=== PATIENT | female | born 1940 | race Caucasian/White ===

== ENCOUNTER 2016-10-01 12:25 | Outpatient (CLI) | payer MEDICARE, OTHER ==
[~2016-10-01] VITALS: Ht 162.6 cm; Wt 56.8 kg
--- NOTE | ~2016-10-01 | HEMODYNAMI ---
PATIENT:ADRIANO MORRISON MEDICAL RECORD: [id number] : 40 [facility]# [id number] ADMISSION DATE: 10/01/16 Generatedon:10/02/20169:46 Patient name: ADRIANO MORRISON Patient #: [id number] SSN: : 1940 Date of study: 10/02/2016 Page: Of Hemodynamic Procedure Report Patient Data Patient Demographics Procedure consent was obtained First Name: ADRIANO Gender: Female Last Name: PRINCE : 1940 Middle Initial: D Age: 76 year(s) Patient #: [id number] Race: Additional ID: [id number] Contact details Address: [address] [place] [address] State: [place] City: [place] Zip code: [address] Past Medical History Allergies: No known allergies Admission Admission Data Admission Date: 10/01/2016 Admission Time: 13:38 Room #: D.2119 Insurance Payor: [employer], Medicare Height (in.): 64 BSA: 1.68 (m2) Height (cm.): 162.56 BMI: 24.03 (kg/m2) Weight (lbs.): 140 Weight (kg.): 63.5 Medications upon Admission Medications Dosage Times Administered Last Remarks per Delivery Day Date and Time Clopidogrel Yes 10/02/2016 0:00 Lab Results Lab Result Date: 10/02/2016 Lab Result Time: 0:00 Biochemistry Name Units Result Min Max Creatinine mg/dl 1.2 --(---*)-- 0.6 1.3 CBC Name Units Result Min Max Hemoglobin g/dl 12.7 -*(----)-- 13.5 17.5 Procedure Procedure Types Cath Procedure Diagnostic Procedure [facility] w/Coronaries FFR/IVUS Intra-Coronary IVUS Initial PCI Procedure Coronary Stent Initial Procedure Description Procedure Date Procedure Date: 10/02/2016 Procedure Start Time: 9:19 Procedure End Time: 9:42 Procedure Staff Name Function Scott Martinez MD Performing Physician [employer] RT Scrub Padmini Herrera RN Nurse Foreign Vieyra RN Communication And Outreach Manager Luis F Kelley RT Monitor Procedure Data Cath Procedure Fluoroscopy Diagnostic fluoroscopy Total fluoroscopy Time: 2.3 time: 2.3 min min Diagnostic fluoroscopy Total fluoroscopy dose: 372 dose: 372 mGy mGy Contrast Material Contrast Material Type Amount (ml) Isovue 300 85 Entry Location Entry Primary Successful Side Size Upsize Upsize Entry Closure Succes sful Closure Location (Fr) 1 (Fr) 2 (Fr) Remarks Device Remarks Femoral Right 5 Fr 6 Fr Vascade artery Short Closure System Estimated blood loss: 10 ml Diagnostic catheters Device Type Used For End Catheter Placement Cordis 5Fr Pigtail Procedure Catheter (MP) Cordis 5Fr JL 4.0 Procedure Catheter (MP) Cordis 5Fr 3DRC Catheter Procedure (MP) Procedure Medications Medication Administration Route Dosage Oxygen NC 2 l/min Lidocaine 2% added to field 20 Heparin Flush Bag added to field 2 bags (1000units/500ml NS) 0.9% NaCl I.V. 100 ml/hr Versed I.V. 1 mg Fentanyl I.V. 50 mcg Versed I.V. 0.5 mg Fentanyl I.V. 25 mcg Heparin Bolus I.V. 4000 units Hemodynamics Rest BSA: 1.68 (m2) HGB: 12.7 (g/dl) O2 Consumption: Estimated: 152.71 (ml/min) O2 Co nsumption indexed: Estimated:90.9 (ml/min/m) Heart Rate: 70 (bpm) Snapshots Pre Cath Intra NCS Post Cath Vital Signs Time Heart Resp SPO2 etCO2 [id number] NIBP (mmHg) Rhythm Pain Sedation Rate (ipm) (%) (mmHg) (mmHg) Status Level (bpm) 9:11:11 70 20 99 0 0 128/70(100) NSR 0 (11) 10(A) , No pain 9:15:28 73 16 97 0 0 112/63(92) NSR 0 (11) 10(A) , No pain 9:19:37 74 17 99 0 0 115/68(84) NSR 0 (11) 9(A) , No pain 9:23:47 79 16 99 0 0 113/66(90) NSR 0 (11) 9(A) , No pain 9:27:57 80 17 99 0 0 112/65(81) NSR 0 (11) 9(A) , No pain 9:32:09 79 17 99 0 0 113/61(77) NSR 0 (11) 9(A) , No pain 9:36:19 81 16 99 0 0 110/66(81) NSR 0 (11) 10(A) , No pain 9:40:25 84 22 99 0 0 123/72(97) NSR 0 (11) 10(A) , No pain Medications Time Medication Route Dose Verified Delivered Reason Notes Effectiveness by by 9:11:22 Oxygen NC 2 Scott Buffie used for l/min Juan Herrera RN procedure 9:11:28 Lidocaine 2% added 20ml Scott Scott for local to vial Juan Martinez MD anesthetic field 9:11:33 Heparin Flush added 2 Scott Scott used for Bag to bags Juan Martinez MD procedure (1000units/500ml field NS) 9:11:42 0.9% NaCl I.V. 100 Scott Buffie Per physician ml/hr Juan Herrera RN 9:17:15 Versed I.V. 1 mg Scott Buffie for sedation Juan Herrera RN 9:17:21 Fentanyl I.V. 50 Scott Buffie for sedation mcg Juan Herrera RN 9:25:53 Versed I.V. 0.5 Scott Buffie for sedation mg Juan Herrera RN 9:25:57 Fentanyl I.V. 25 Scott Buffie for sedation mcg Juan Herrera RN 9:31:15 Heparin Bolus I.V. 4000 Scottlena Deeie for verifie d units Juan Herrera RN anticoagulation with dr martinez Procedure Log Time Note 8:35:05 Foreign Vieyra RN sent for patient. Start room use. 8:47:11 Time tracking: Regular hours 8:47:15 Plan of Care:Hemodynamics will remain stable., Cardiac rhythm will remain stable., Comfort level will be maintained., Respiratory function will remain adequate., Patient/ family verbilizes understanding of procedure., Procedure tolerated without complication., Recovers from procedure without complications.. 8:53:16 Patient received from PCU to [facility] 2 Alert and oriented. Tansferred to table in Supine position. 8:53:17 Warm blankets applied, and fred hugger turned on for patient comfort. 8:53:17 Correct patient and procedure confirmed by team. 8:53:19 Signed procedure consent form obtained from patient. 9:09:58 ECG and BP/O2 sat monitors applied to patient. 9:09:59 Vital chart was started 9:10:00 Baseline sample Acquired. 9:10:15 Rhythm: sinus rhythm 9:10:17 Full Disclosure recording started 9:10:34 H&P Date Dictated: 10/01/2016 Within 30 days and on chart.. 9:10:36 Pre-procedure instructions explained to patient. 9:10:36 Pre-op teaching completed and patient verbalized understanding. 9:10:38 Family in patients room. 9:10:40 Patient NPO since Midnight. 9:11:22 Oxygen 2 l/min NC was given by Padmini Herrera RN; used for procedure; 9:11:28 Lidocaine 2% 20ml vial added to field was given by Scott Martinez MD; for local anesthetic; 9:11:33 Heparin Flush Bag (1000units/500ml NS) 2 bags added to field was given by Scott Martinez MD; used for procedure; 9:11:42 0.9% NaCl 100 ml/hr I.V. was given by Padmini Herrera RN; Per physician; 9:12:51 Patient allergic to No known allergies 9:12:53 Is the patient allergic to Iodine/contrast media? No. 9:13:02 Is patient on blood thinner?Yes 9:13:06 ACC The patient was administered the following blood thiners within the last 24 hours: ACCAspirin, ACCPlavix 9:13:11 Patient diabetic? No. 9:13:20 Previous problem with sedation/anesthesia? No ? 9:13:22 Snore? Yes 9:13:23 Sleep apnea? No 9:13:25 Deviated septum? No 9:13:25 Opens mouth fully? Yes 9:13:26 Sticks out tongue? Yes 9:13:28 Airway obstruction? No ? 9:13:30 Dentures? No ? 9:13:34 Pre procedure: right dorsailis pedis pulse 1+ Palpable, but thready & weak; easily obliterated 9:13:36 Patient pain scale 0/10 ?. 9:13:45 Patient pain scale 3/10 ?. 9:13:57 IV patent on arrival in left wrist with 0.9% NaCl at [facility]. 9:14: Lab Result : Creatinine 1.2 mg/dl 9:14: Lab Result : Hemoglobin 12.7 g/dl 9:14:25 Lab results completed and on chart. 9:14:29 Right groin area was prepped with chlora-prep and draped in sterile fashion 9:14:30 Alarms reviewed by R. N. 9:14:30 Sharps counted by scrub and verified by R.N. 9:14:38 Use device set Femoral Dx 9:14:51 Tegaderm 4 x 4 opened to sterile field. 9:14:52 Acist Manifold opened to sterile field. 9:14:53 Acist Hand Control opened to sterile field. 9:14:54 Acist Syringe opened to sterile field. 9:14:54 Bag Decanter opened to sterile field. 9:14:55 Cardinal Cath Pack opened to sterile field. 9:14:56 Terumo 5Fr Krypton Sheath opened to sterile field. 9:14:57 St Damian 260cm J .035 wire opened to sterile field. 9:15:01 Cordis Infinity 5Fr Multipack catheter opened to sterile field. 9:15:13 --------ALL STOP TIME OUT------ 9:15:13 Final Timeout: patient, procedure, and site verified with staff and physician. All members of the team are in agreement. 9:15:15 Right groin site verified by team. 9:15:19 Physical assessment completed. ASA score P 2 - A patient with mild systemic disease as per Scott Martinez MD. 9:15:22 Sedation plan: IV Moderate Sedation Versed, Fentanyl 9:17:15 Versed 1 mg I.V. was given by Padmini Herrera RN; for sedation; 9:17:21 Fentanyl 50 mcg I.V. was given by Padmini Herrera RN; for sedation; 9:19:26 Zero performed for pressure channel P1 9:19:39 Procedure started. 9:19:43 Local anesthetic to right femoral artery with Lidocaine 2% by Scott Martinez MD.INITIAL ACCESS ONLY 9:20:19 A 5 Fr sheath was inserted into the Right Femoral artery 9:20:27 A Cordis 5Fr Pigtail Catheter (MP) was advanced over the wire and used for Procedure. 9:20:34 LV gram done using RUSSO 9:20:39 Injector settings: Ml/sec: 10, Volume: 20, 9:20:54 EF : 60 % 9:20:59 Catheter exchanged over wire. 9:21:03 A Cordis 5Fr JL 4.0 Catheter (MP) was advanced over the wire and used for Procedure. 9:21:29 LCA angiography performed. 9:22:34 Catheter exchanged over wire. 9:22:37 A Cordis 5Fr 3DRC Catheter (MP) was advanced over the wire and used for Procedure. 9:22:54 RCA angiography performed. 9:23:26 Catheter removed. 9:23:43 Terumo 6Fr Krypton Sheath opened to sterile field. 9:23:44 Weldon Whisper J 300cm 0.014 guide wire opened to sterile field. 9:23:45 Motion Math [place] IVUS Catheter opened to sterile field. 9:23:58 Sheath upsized to a 6 Fr Short. 9:25:31 Medtronic Launcher 6Fr 3DRC guide catheter opened to sterile field. 9:25:39 6 Fr 3drc guide catheter was inserted over the wire 9:25:42 whisper wire advanced. 9:25:43 Wire advanced across lesion. 9:25:45 IVUS catheter advanced over wire. 9:25:49 IVUS pass to RCA lesion performed. 9:25:53 Versed 0.5 mg I.V. was given by Padmini Herrera RN; for sedation; 9:25:57 Fentanyl 25 mcg I.V. was given by Padmini Herrera RN; for sedation; 9:27:18 IVUS catheter removed over wire. 9:31:15 Heparin Bolus 4000 units I.V. was given by Padmini Herrera RN; for anticoagulation; verified with dr martinez 9:32:33 MEASURING 9:33:22 Inflation Number: 1 A Medtronic Integrity 4.0 X 12 stent was prepped and advanced across the Mid RCA. The stent was deployed at 17 NABEEL for 0:10 (min:sec). 9:33:42 Vascade 6/7 Fr Closure Device opened to sterile field. 9:34:12 ACC PCI Site: mRCA has 65% stenosis. 9:34:24 ACC Post-intervention SUZI Flow is 3. 9:34:26 Stent catheter was removed intact over wire. 9:34:32 Wire removed. 9:34:34 Guide catheter removed. 9:37:12 Sheath removed intact; hemostasis achieved with Vascade Closure System to the Right Femoral artery. 9:37:15 Procedure ended.(Physican Out) 9:37:30 Fluoroscopy time 02.30 minutes. 9:37:36 Fluoroscopy dose: 372 mGy 9:37:36 Flurop Dose total: 372 9:37:47 Contrast amount:Isovue 300 85ml. 9:37:49 Sharps counted by scrub and verified by R.N. 9:40:29 Insertion/operative site no bleeding no hematoma. 9:40:37 Post-op/insertion site Right Femoral artery dressed using a 4 x 4 and Tegaderm. 9:40:43 Post right femoral artery:stable 9:40:51 Post Procedure Pulses reassessed and unchanged 9:41:04 Post-procedure physical assessment completed. ASA score P 2 - A patient with mild systemic disease as per Scott Martinez MD. 9:41:09 Post procedure rhythm: sinus rhythm 9:41:13 Estimated blood loss: 10 ml 9:41:15 Post procedure instruction explained to patient.Patient verbalizes understanding. 9:41:16 Patient needs reinforcement of post procedure teaching. 9:41:42 Procedure type changed to Cath procedure, Diagnostic procedure, LHC, LHC w/Coronaries, FFR/IVUS, Intra-Coronary IVUS Initial, PCI procedure, Coronary Stent Initial 9:42:12 Procedure and supply charges have been captured, reviewed, submitted and are correct. 9:42:19 Vital chart was stopped 9:42:21 See physician's report for complete and final results. 9:42:23 Report given to Post Procedure Room. 9:42:28 Patient transfered to Post Procedure Room with Stretcher. 9:42:32 Procedure ended. 9:42:32 Full Disclosure recording stopped 9:42:50 ACC-PCI Only Patient was given prescriptions, or instructed by Padmini Herrera RN to start/continue the following medications upon discharge: Aspirin, Plavix 9:42:52 End room use (Document Last) 9:44:38 Patient Height : 64 cm 9:44:55 Patient Weight : 140 kg 9:44:57 Insurance Payor : Medicare, [facility] 9:45:34 ACC Patient presents with Unstable Angina CCS Anginal Class 2--Slight limitation of ordinary activity. 9:45:45 Diagnostic Cath Status : Elective Intervention Summary Intervention Notes Time ActionType Lesion and Equipment Action# Pressure Duration Attributes Used 9:33:22 Place stent Mid RCA Medtronic 1 17 00:10 Integrity 4.0 X 12 stent Device Usage Item Name Manufacture Quantity Catalog Hospital Part Current Minimal Lot# / Number Charge Number Stock Stock Serial# Code [address] 1 [id number] 137364 467587 5 4 x 4 Acist Acist 1 34185 704812 645576 310248 5 PipelineDB Acist Acist 1 82158 544666 787155 636499 5 Hand Satin [employer] Inc Acist Acist 1 00344 676774 980902 515455 20 Syringe Satin [employer] ([employer]) Systems Ubalo Bag Microtek 1 2002S 480782 46629 450282 5 [place]an [place] [employer]. Cardinal Cardinal 1 [id number] 896987 19664 032593 5 Cath Pack Health Terumo Terumo 1 [id number] 073652 551483 512416 [address] Damian 1 653409 037386 999409 944931 30 260cm J .035 wire Cordis Cardinal 1 [id number] 393494 53710 900254 30 Infinity Health 5Fr Multipack catheter Cordis Cardinal 1 255251 5 5Fr Health Pigtail Catheter (MP) Cordis Cardinal 1 562373 5 5Fr JL Health 4.0 Catheter (MP) Cordis Cardinal 1 404860 5 5Fr 3DRC Health Catheter (MP) Terumo Terumo 1 [id number] 095425 191408 770446 40 6Fr Krypton Sheath Weldon Weldon 1 [id number] 188204 899835 662299 5 Whisper J Vascular 300cm 0.014 guide wire [place] 1 [id number] 336424 753537 548690 8 [place] IVUS Catheter Medtronic Medtronic 1 [id number] 346613 532322 799401 1 Launcher 6Fr 3DRC guide catheter Medtronic Medtronic 1 [id number] 149582 958630 195459 5 [id number] Integrity 4.0 X 12 stent Vascade Cardiva 1 [id number] 319587 775278 393364 5 02/24 Medical, Closure Inc. Device Signature Audit [place] Time Signature Unsigned Intra-Procedure 10/02/2016 Luis F Kelley 9:46:06 AM RT(R) Signatures Monitor : Luis F Kelley RT Signature : Date : Time : [id number] [place] [address]
[2016-10-01 10:50] LABS: BASOPHILS 0.1 % (0.0-2.0); EOSINOPHILS 0.6 % (0-7); HEMATOCRIT 36.8 % (36.0-48.0); HEMOGLOBIN 12.7 g/dL (12-16); IMMATURE GRANULOCYTES 0.1 % (0-5); LYMPHOCYTES 37.5 % (15-50); MCH 29.7 pg (26.0-34.0); MCHC 34.5 g/dL (31.0-37.0); MCV 86.2 fL (80.0-100.0); MEAN PLATELET VOLUME 8.7 fL (7.4-10.4); MONOCYTES 7.5 % (2-11); NEUTROPHILS 54.2 % (40-80); PLATELET COUNT 317 10x3/uL (130-400); RBC 4.27 10x6/uL (4.00-5.40); RDW 12.3 % (11.5-14.5); WBC 6.8 10x3/uL (4.8-10.8)
[2016-10-01 11:08] LABS: ALBUMIN 4.1 g/dL (3.4-5.0); ALKALINE PHOSPHATASE 99 U/L (46-116); ALT (SGPT) 25 U/L (10-68); BILIRUBIN - TOTAL 1.07 mg/dL (0.2-1.3); CALC OSMOLALITY 256 mosm/kg (275-300); CALCIUM 9.4 mg/dL (8.5-10.1); CARBON DIOXIDE 28.7 mmol/L (21.0-32.0); CHLORIDE - SERUM 90 mmol/L (98-107); CREATININE - SERUM 1.2 mg/dL (0.6-1.3); GLUCOSE 104 mg/dL (74-106); POTASSIUM - SERUM 4.2 mmol/L (3.5-5.1); PROTEIN - SERUM 7.1 g/dL (6.4-8.2); SODIUM 128 mmol/L (136-145); UREA NITROGEN 13 mg/dL (7-18); eGFR NON AFRICAN AMERICAN 46 mL/min (90-120)
[2016-10-01 11:19] LABS: CHOL - HDL RATIO 3.4 ratio (2.3-4.1); CHOLESTEROL, TOTAL 175 mg/dL (0-200); CKMB 3.9 U/L (0.0-3.6); CREATINE KINASE 235 UL (21-215); HDL CHOLESTEROL 51 mg/dL (32-96); LDL CHOLESTEROL 103 mg/dL (0-100); TRIGLYCERIDE 109 mg/dL (30-200)
[2016-10-01 11:21] LABS: TROPONIN-I < 0.017 ng/mL (0.000-0.060)
--- NOTE | 2016-10-01 15:31 | NUR ---
TRANSFER FROM ER BY STRETCHER. OREINTED TO ROOM. CALL LIGHT IN REACH. WILL CONT. PLAN OF CARE.
[2016-10-01] MEDS ORDERED: CARAFATE1 G PO (15:35)
[2016-10-01] MEDS ORDERED: SYNTHROID75 MCG PO (15:36)
[2016-10-01] MEDS ORDERED: CYMBALTA30 MG PO (15:36)
[2016-10-01] MEDS ORDERED: OMEPRAZOLE40 MG PO (15:36)
[2016-10-01] MEDS ORDERED: EDARBYCLOR 40-1 EACH PO (15:38)
[2016-10-01 16:00] VITALS: Ht 162.6 cm; Wt 56.8 kg
[2016-10-01 16:28] VITALS: BP 138/75
--- NOTE | 2016-10-01 17:53 | NUR ---
WITHOUT CHANGES OR DISTRESS NOTED AT THIS TIME. SON AT SIDE.
--- NOTE | 2016-10-01 19:42 | NUR ---
RESUMED CARE OF PT, LYING IN BED RESPIRAITONS EVEN AND UNLABORED ON 2LPM VIA NC. LEFT HAND SALINE LOCKED. 79 SR ON TELEMETRY. PLAN OF CARE DISCUSSED. CALL LIGHT IN REACH. SEE NURSE ASSESSMENT. WILL CONTINUE TO MONITOR.
[2016-10-01 20:50] VITALS: BP 114/63
[2016-10-02 02:50] VITALS: BP 101/70
--- NOTE | 2016-10-02 05:01 | NUR ---
CALL LIGHT IN REACH, WILL CONTINUE WITH PLAN OF CARE.
[2016-10-02 05:22] VITALS: BP 108/70
[2016-10-02 08:00] VITALS: BP 114/67
--- NOTE | 2016-10-02 08:55 | NUR ---
IV RESTARTED TO LEFT FA WITH 22 GAUGE CATH X 1 STICK. PRE-OPS GIVEN. TO DEWAXER BY BED.
--- NOTE | 2016-10-02 10:01 | NUR ---
BACK FOM PHLEBOTOMY DIRECTOR. VS WNL. RIGHT GROIN STABLE WITHOUT BLEEDING OR HEMATOMA NOTED. WILL MONITOR.
[2016-10-02] MEDS ORDERED: ASPIRIN81 MG PO (10:52)
[2016-10-02] MEDS ORDERED: PLAVIX75 MG PO (10:52)
--- NOTE | 2016-10-02 11:11 | HP ---
PATIENT: ADRIANO LOZANO MEDICAL RECORD: [id number] ACCOUNT: [id number] LOCATION:[address] : 40 ADMISSION DATE: 10/01/16 HISTORY AND PHYSICAL EXAMINATION ADMITTING DIAGNOSIS: Chest pain compatible with angina -- unstable. HISTORY OF PRESENT ILLNESS: Mrs. Lozano has no previous cardiac history, no previous chest pain history for the past 2 days. She has been having a classic chest pain compatible with angina, dull aching sensation across the anterior chest. Her CPK and MB were elevated; however, troponin is normal. She continues to have the chest pain. Her EKG is with nonspecific ST-T abnormalities, but no acute ST elevation. PHYSICAL EXAMINATION: GENERAL APPEARANCE: Well-nourished, well-developed, appears stated age. Level of distress, comfortable. PSYCHIATRIC: Mental status, alert, normal affect. Orientation, oriented to time, place and person. EYES: Lids and conjunctiva, noninjected. No discharge, no pallor. ENT: Lips, teeth, gums, normal dentition. Oropharynx, no cyanosis, no pallor. NECK: Carotid arteries, bilateral normal upstroke, no bruits, no thrills. JUGULAR VEINS: No jugular venous pressure or distention. CERVICAL LYMPH NODES: Nontender, nonenlarged. THYROID: Not enlarged. Nontender. No nodules. LUNGS: Respiratory effort, unlabored. CHEST: Normal curvature. No thoracic deformity. No chest wall tenderness. Percussion, resonant. Auscultation, clear. No wheezes, no rales, no rhonchi. CARDIOVASCULAR: Precordial exam, nondisplaced. No heaves or pericardial thrills. Rate and rhythm, regular. Heart sounds, normal S1, normal S2. No S3, no gallop, no rub. Systolic murmur, not heard. Diastolic murmur, not heard. EXTREMITIES: No cyanosis, no edema. Peripheral pulses, full and equal in all extremities, except as noted. No bruits appreciated. ABDOMEN: Soft, nondistended. Normal aorta. No bruit. Nontender. No masses. Liver, nontender, no hepatomegaly. Spleen, nontender, no splenomegaly. MUSCULOSKELETAL: No joint tenderness. No joint swelling. No erythema. NEUROLOGICAL: Normal gait, normal strength, normal tone. SKIN: Warm and dry. REVIEW OF SYSTEMS: The patient reports easy bruising but reports no swollen glands. The patient reports no fever, no night sweats, no significant weight gain, no significant weight loss. No significant exercise tolerance. The patient reports no dry eyes, no irritation, no vision change. Patient reports no difficulty hearing and no ear pain. Patient reports no frequent nose bleeds or nose and sinus problems. Patient reports on arm pain on exertion. No shortness of breath while lying down. No history of heart murmur. Patient reports no cough, no wheezing or coughing up blood. Patient reports no abdominal pain, no vomiting. Normal appetite. No diarrhea and not vomiting blood. No nausea and no constipation. Patient reports no incontinence. No difficulty urinating. No hematuria. No increased frequency. Patient reports no muscle aches. No weakness, no arthralgias, no back pain. No swelling of the extremities. Patient reports no abnormal mole, no jaundice, no rashes. Reports no loss of consciousness. No weakness and no numbness. No seizures, dizziness, or headaches. The patient reports no depression, no sleep disturbance, feeling safe in a relationship and no alcohol abuse. Patient reports on fatigue. HISTORY AND PHYSICAL [id number] ADRIANO LOZANO Reports no runny nose or sinus pressure. No itching, no hives, and no frequent sneezing. OVERALL IMPRESSION: Chest pain compatible with angina with abnormal CK and CK-MB, most likely she does have hemodynamically significant coronary artery disease. We will load her with Plavix today. Proceed with coronary angiography in the a.m. Further care depends upon findings of the angiography. TRANSINT:[id number] Voice Confirmation ID: [id number] DOCUMENT ID: [id number] DEAN MOFFETT MD at 1111 CC: [id number] DICTATION DATE: 10/01/16 1226 ADMINISTRATION CLERK: 10/01/16 1238 ADM IN [id number] [place] [address]
--- NOTE | 2016-10-02 11:11 | DS ---
PATIENT:ADRIANO LOZANO :40 MEDICAL RECORD: [id number] DISCHARGE SUMMARY ADMISSION DATE: 10/01/16 DISCHARGE DATE: DISCHARGE DIAGNOSES: 1. Angina. 2. Coronary artery disease. 3. Percutaneous transluminal coronary angioplasty stent right coronary artery this admission. HOSPITAL COURSE: Mrs. Lozano presents with anginal symptomatology, found to have single-vessel disease to the RCA, underwent successful PTCA stent of the RCA, was discharged home with the addition of aspirin and Plavix to her medical regimen. We will follow up with [facility] in 1 month. TRANSINT:[id number] Voice Confirmation ID: [id number] DOCUMENT ID: [id number] DEAN MOFFETT MD at 1111 CC: [id number] DICTATION DATE: 10/02/16936 BITE BLOCK MAKER: 10/02/16 0951 ADM IN [facility] [address] [id number]
--- NOTE | 2016-10-02 11:11 | OP ---
PATIENT NAME: ADRIANO MORRISON MEDICAL RECORD: [id number] :40 LOCATION:D.M2 D.2119 ADMISSION DATE:10/01/16 SURGEON: DEAN MOFFETT MD DATE OF OPERATION: 10/02/2016 PROCEDURES: 1. PTCA stent RCA. 2. Intravascular ultrasound RCA. 3. Left heart catheterization. 4. Selective coronary angiography. 5. Left ventriculogram. INDICATION: Angina and coronary artery disease. PROCEDURE IN DETAIL: After informed consent was obtained and after detailed explanation of risks, benefits as well as alternative therapies, the patient elected to proceed with angiogram and angioplasty. The right femoral area was prepped and draped in normal sterile fashion. Right femoral artery was cannulated via modified Seldinger technique with the placement of 6-Cambodian sheath. All catheters exchanged through this sheath. FINDINGS: The left ventriculogram was performed in standard 30-degree RUSSO view, reveals good cardiac wall motion throughout all segments. Overall ejection fraction estimated at 55%-60%. SELECTIVE CORONARY ANGIOGRAPHY: 1. Left main showed no significant angiographic disease. 2. Left anterior descending, has moderate irregularities, but no flow-limiting stenosis, left circumflex shows moderate irregularities, but no flow-limiting stenosis. 3. The right coronary has a 65% to 70% stenosis in the mid vessel confirmed by intravascular ultrasound. PTCA STENT OF THE RCA: The stent used is a 4.0 x 12 mm Integrity. Result was 0% residual stenosis. OVERALL IMPRESSION: Successful percutaneous transluminal coronary angioplasty stent of the right coronary artery going from 65-70% initial stenosis to 0% residual. TRANSINT:[id number] Voice Confirmation ID: [id number] DOCUMENT ID: [id number] DEAN MOFFETT MD at 1111 CC: [id number] DICTATION DATE: 10/02/16 0938 TRAINING PROGRAM DEVELOPER: 10/02/16 0955 ADM IN [id number] [place] [address]
[2016-10-02 12:00] VITALS: BP 96/51
--- NOTE | 2016-10-02 13:25 | NUR ---
SOME BRUISING NOTED TO RIGHT GROIN. GREG FROM MACHINIST HELPER NOTIFIED TO COME OVER TO ASSESS.
--- NOTE | 2016-10-02 13:42 | NUR ---
FEMSTOP APPLIED BY GREG. WILL MONITOR.
--- NOTE | 2016-10-02 14:22 | NUR ---
GREG AT [facility]. WILL LEAVE ON 15 MIN AND REASSES.
--- NOTE | 2016-10-02 14:40 | NUR ---
FEMSTOP OFF WITHOUT FURTHER BLEEDING OR HEMATOMA. WILL CONT. TO MONITOR.
--- NOTE | 2016-10-02 15:23 | NUR ---
RIGHT GROIN STABLE WITHOUT BLEEDING OR HEMATOMA NOTED. IV AND TELEMETRY DCD. DC PLANS GIVEN. UNDERSTANDING VOICED. ESCORTED TO CAR BY W/C.
== END 2016-10-02 15:24 | disposition home or self-care (01) ==
LOC: OBSVTIME → D.CATH 12:25 → D.M2 12:25 → EDSTATUS 13:00 → D.M2 13:38 → OBSVTIME 13:38 → D.ER 13:38 → D.M2 10-02 13:06 → D.SDCHOLD 10-02 13:06 → D.M2 10-02 15:24 → D.CATH 10-02 15:24 → D.M2 10-02 15:24
PROVIDERS: Emergency Medicine
DX: I25.119 Atherosclerotic heart disease of native coronary artery with unspecified angina pectoris (principal)

== ENCOUNTER 2018-07-18 21:00 | Emergency (ER) | payer MEDICARE, OTHER ==
[~2018-07-18] VITALS: Ht 162.6 cm; Wt 68.2 kg
[~2018-07-18 21:00] MED LIST: ASPIRIN81 MG PO; CARAFATE1 G PO; CYMBALTA30 MG PO; EDARBYCLOR 40-1 EACH PO; OMEPRAZOLE40 MG PO; PLAVIX75 MG PO; SYNTHROID75 MCG PO
[2018-07-18 21:01] VITALS: Ht 162.6 cm; Wt 68.2 kg
[2018-07-18] MEDS ORDERED: TORADOL10 MG PO (23:43)
[2018-07-19 00:04] VITALS: BP 190/95
== END 2018-07-19 00:04 | disposition home or self-care (01) ==
LOC: D.ER 21:00
DX: S02.2XXA Fracture of nasal bones, initial encounter for closed fracture (principal); W18.30XA Fall on same level, unspecified, initial encounter; Y93.89 Activity, other specified; Y92.019 Unspecified place in single-family (private) house as the place of occurrence of the external cause; S01.81XA Laceration without foreign body of other part of head, initial encounter

== ENCOUNTER 2019-08-28 11:07 | Inpatient (IN) | payer MEDICARE ==
[~2019-08-28] VITALS: Ht 162.6 cm; Wt 68.2 kg
[~2019-08-28 11:07] MED LIST changes: +TORADOL10 MG PO
[2019-08-28 11:26] LABS: BASOPHILS 0.3 % (0-2); EOSINOPHILS 1.4 % (0-7); HEMATOCRIT 40.4 % (36.0-48.0); HEMOGLOBIN 13.4 g/dL (12-16); IMMATURE GRANULOCYTES 0.2 % (0-5); LYMPHOCYTES 45.7 % (15-50); MCH 29.3 pg (26.0-34.0); MCHC 33.2 g/dL (31.0-37.0); MCV 88.4 fL (80.0-100.0); MEAN PLATELET VOLUME 9.9 fL (7.4-10.4); MONOCYTES 6.9 % (2-11); NEUTROPHILS 45.5 % (40-80); RBC 4.57 10x6/uL (4.00-5.40); RDW 14.2 % (11.5-14.5); WBC 6.3 10x3/uL (4.8-10.8)
[2019-08-28 11:30] LABS: PLATELET COUNT 234 10x3/uL (130-400)
[2019-08-28 11:41] LABS: ANION GAP 13.9 mmol/L (8-16); CALCIUM 9.1 mg/dL (8.5-10.1); CARBON DIOXIDE 25.9 mmol/L (21.0-32.0); CREATININE - SERUM 1.5 mg/dL (0.6-1.3); POTASSIUM - SERUM 3.8 mmol/L (3.5-5.1)
[2019-08-28 11:47] LABS: ALBUMIN 3.4 g/dL (3.4-5.0); BILIRUBIN - TOTAL 0.67 mg/dL (0.2-1.3); PROTEIN - SERUM 6.9 g/dL (6.4-8.2)
[2019-08-28 12:42] LABS: APPEARANCE CLEAR (CLEAR); BILIRUBIN NEGATIVE (NEGATIVE); COLOR YELLOW (YELLOW); GLUCOSE NEGATIVE (NEGATIVE); KETONE NEGATIVE (NEGATIVE); NITRITE NEGATIVE (NEGATIVE); PROTEIN NEGATIVE (NEGATIVE); SPECIFIC GRAVITY 1.015 (1.005-1.020); UROBILINOGEN NORMAL (NORMAL)
[2019-08-28 13:44] VITALS: BP 145/76
--- NOTE | 2019-08-28 14:50 | NUR ---
RECIEVED REPORT FROM [place] BARKSDALE RN.
[2019-08-28] MEDS ORDERED: TRAZODONE HCL150 MG PO (15:19)
[2019-08-28] MEDS ORDERED: COZAAR100 MG PO (15:19)
[2019-08-28] MEDS ORDERED: RABEPRAZOLE SOD PO (15:20)
[2019-08-28] MEDS ORDERED: XANAX1 MG PO (15:21)
[2019-08-28 15:31] VITALS: BP 168/73; Ht 162.6 cm; Wt 68.2 kg
--- NOTE | 2019-08-28 15:33 | NUR ---
PT ARRIVED IN ROOM VIA STRETCHER, STOOD WITH SON TO TRANSFER. APPEARS TO BE MAX ASSIST WHEN STANDING. FAMILY REQUESTS PT WHILE SHE'S HERE IF POSSIBLE. ALSO REQUESTS HER TO BE OFF NPO BECASUE THEY DON'T WANT HER TO BE HUNGRY. PT IS ALERT AND ORIENTED X3, UNAWARE OF SPECIFIC TIMES. HX OF DEMENTIA, SON STATES IT'S BEEN PROGRESSING RAPIDLY OVER THE PASS FEW WEEKS COMPARED TO WHEN SHE WAS FIRST DIAGNOSISED.
--- NOTE | 2019-08-29 00:16 | NUR ---
RESTING WITH EYES CLOSED, RESPERATIONS EVEN, NO S/S DISTRESS NOTED.
[2019-08-29 00:30] VITALS: BP 115/64
--- NOTE | 2019-08-29 02:10 | NUR ---
I have reviewed this patient and I concur with the Shift Assessment completed by the Licensed Practical Nurse today this shift.
[2019-08-29 04:43] VITALS: BP 130/69
[2019-08-29 06:29] LABS: BASOPHILS 0.2 % (0-2); EOSINOPHILS 1.7 % (0-7); HEMATOCRIT 35.1 % (36.0-48.0); HEMOGLOBIN 11.4 g/dL (12-16); IMMATURE GRANULOCYTES 0.2 % (0-5); LYMPHOCYTES 52.2 % (15-50); MCH 28.6 pg (26.0-34.0); MCHC 32.5 g/dL (31.0-37.0); MEAN PLATELET VOLUME 10.1 fL (7.4-10.4); MONOCYTES 6.7 % (2-11); PLATELET COUNT 236 10x3/uL (130-400); RBC 3.99 10x6/uL (4.00-5.40)
[2019-08-29 06:54] LABS: ALBUMIN 2.7 g/dL (3.4-5.0); ANION GAP 9.9 mmol/L (8-16); BILIRUBIN - TOTAL 0.5 mg/dL (0.2-1.3); CALCIUM 8.5 mg/dL (8.5-10.1); CARBON DIOXIDE 26.9 mmol/L (21.0-32.0); CREATININE - SERUM 1.3 mg/dL (0.6-1.3); POTASSIUM - SERUM 3.8 mmol/L (3.5-5.1); PROTEIN - SERUM 5.9 g/dL (6.4-8.2)
[2019-08-29 08:00] VITALS: BP 124/76
--- NOTE | 2019-08-29 09:58 | NUR ---
PATIENT IS RESTING QUIETLY IN BED. DENIES ANY NEEDS AT THIS TIME.
[2019-08-29 12:00] VITALS: BP 105/85
--- NOTE | 2019-08-29 14:54 | NUR ---
OT NOTE: PT COMPLETED BED MOB TASKS WITH MOD A. PT COMPLETED TRANSFER WITH MIN A. PT COMPLETED HYGIENE TASKS WITH MOD A. THANK YOU,RICHARDSON BOUDREAUX
[2019-08-29] MEDS ORDERED: FLORAJEN3 CAPS460 MG PO (15:01)
[2019-08-29] MEDS ORDERED: OMNICEF300 MG PO (15:02)
[2019-08-29] MEDS ORDERED: MUCINEX600 MG PO (15:02)
[2019-08-29] MEDS ORDERED: ZITHROMAX500 MG PO (15:03)
[2019-08-29] MEDS ORDERED: TESSALON PERLE100 MG PO (15:06)
--- NOTE | 2019-08-29 16:18 | MORECARE ---
CASE MANAGEMENT DISCHARGE SUMMARY PATIENT: ADRIANO MORRISON UNIT: [id number] ADM DATE: 08/28/19 AGE: 79 : 40 SEX: F ROOM/BED: D.5916 AUTHOR: ROCKY MYLES PHYSICIAN: REFERRING PHYSICIAN: FLORIN PARDO MD DATE OF SERVICE: 08/29/19 Discharge Plan Patient Name: ADRIANO MORRISON Facility: [facility]:[place] : 1940 Planned Disposition: Home with Home Health Anticipated Discharge Date: 08/29/19 Discharge Date: Expected LOS: 1 Initial Reviewer: [email or web address] Initial Review Date: 08/29/2019 Generated: 08/29/19 5:17 pm DCPIA - Discharge Planning Initial Assessment Updated by [email or web address]: Kieran Hunt on 08/29/19 4:11 pm * Is the patient Alert and Oriented? No * How many steps to enter\exit or inside your home? NONE * PCP DR. DAVIS * Pharmacy [facility] * Preadmission Environment Home with Family * ADLs Partial Dependent * Partial ADLs (Assistance needed) Ambulation Bathing Dressing Medication Management Transfers * Equipment None * Other Equipment NO MEDICAL EQUIPMENT PROVIDER PREFERENCE * List name and contact numbers for known caregivers / representatives who currently or will assist patient after discharge: BUNNY SHAH, SON, * Verbal permission to speak to the caregivers and representatives has been obtained from the patient. N/A * Community resources currently utilized Other * Please name any agencies selected above. [facility] * Additional services required to return to the preadmission environment? No * Can the patient safely return to the preadmission environment? Yes * Has this patient been hospitalized within the prior 30 days at any hospital? No External Providers External Provider: [facility] Next Contact Date: 08/29/2019 Service Request Date: Service Type: Resolution: Reviewer: Comments: External Provider: Parris Roldan Next Contact Date: 08/29/2019 Service Request Date: Service Type: Resolution: Reviewer: Comments: Patient Name: ADRIANO MORRISON Page [phone] at 1618 All edits/amendments must be made on the electronic document DICTATION DATE: 08/29/191616 BILLET CHECKER: SHAUNNA 08/29/191616 RPT#: [id number] DC DATE: STATUS: ADM IN [facility] [address] [place] [address] END OF REPORT
--- NOTE | 2019-08-29 16:27 | MORECARE ---
CASE MANAGEMENT DISCHARGE SUMMARY PATIENT: ADRIANO MORRISON UNIT: [id number] ADM DATE: 08/28/19 AGE: 79 : 40 SEX: F ROOM/BED: D.4435 AUTHOR: SHAR,DOC PHYSICIAN: REFERRING PHYSICIAN: FLORIN PARDO MD DATE OF SERVICE: 08/29/19 Discharge Plan Patient Name: ADRIANO MORRISON Facility: [facility]:[place] : 1940 Planned Disposition: Home with Home Health Anticipated Discharge Date: 08/29/19 Discharge Date: Expected LOS: 1 Initial Reviewer: [email or web address] Initial Review Date: 08/29/2019 Generated: 08/29/19 5:26 pm Comments DCP- Discharge Planning Updated by [email or web address]: Kieran Hunt on 08/29/19 3:[address] Patient Name: ADRIANO MORRISON Admission Status: ER Accout number: [id number] Admission Date: 08-28-2019 : 1940 Admission Diagnosis: Attending: TIM PARDO Current LOS: 1 Anticipated DC Date: 08-29-2019 Planned Disposition: Home with Home Health Primary Insurance: [facility] MEDICARE SOLUTIONS PLANNED EXTERANAL PROVIDER: [facility] Discharge Planning Comments: CM MET WITH PT AND SON IN ROOM TO DISCUSS DISCHARGE PLANNING AND NEEDS. PT HAS DEMENTIA AND SON, BUNNY SHAH IS PT'S FULLTIME CAREGIVER AT HOME. PT HAS NO MEDICAL EQUIPMENT AND NO OUTSIDE SERVICES ASSISTING IN THE HOME. CM DISCUSSED AVAILABILITY OF HOME HEALTH, REHAB SERVICES AND MEDICAL EQUIPMENT. PT'S SON REPORTS HAVING [facility] BUT WOULD LIKE HOME HEALTH ALSO. PT NEEDS PHYSICAL THERAPY AND A WALKER. CM DISCUSSED PROVIDERS FOR HOME HEALTH AND MEDICAL EQUIPMENT, PT'S SON HAS NO PREFERENCE ON PROVIDERS. CHOICE FOR NO PREFERENCE SIGNED. PT'S SON HERE TO PICK PT UP FOR DISCHARGE HOME TODAY. CM CALLED [facility], , SPOKE TO RIP WHO TOOK REFERRAL INFORMATION AND WILL PLACE PT BACK ON SCHEDULE FOR ADMIT TO HOME HEALTH CARE. CM FAXED REFERRAL AND DISCHARGE INFORMATION TO [facility] AT [phone]. CM CALLED [facility], , SPOKE TO CLARA AND PROVIDED REFERRAL INFORMATION, ASKED FOR DELIVERY TO HOSPITAL TODAY FOR DISCHARGE HOME. CM FAXED REFERRAL TO [facility], . [facility] WILL DELIVER ROLLATOR WALKER TO HOSPITAL TODAY. PT'S SON NOTIFIED AND UNDERSTANDS HE HAS $50 COPAY FOR ROLLATOR. BARN HAND NURSE NOTIFIED. Chaplain Resident: Kieran Hunt DCPIA - Discharge Planning Initial Assessment Updated by [email or web address]: Kieran Hunt on 08/29/19 4:11 pm * Is the patient Alert and Oriented? No * How many steps to enter\exit or inside your home? NONE * PCP DR. DAVIS * Pharmacy [facility] ON [address] * Preadmission Environment Home with Family * ADLs Partial Dependent * Partial ADLs (Assistance needed) Ambulation Bathing Dressing Medication Management Transfers * Equipment None * Other Equipment NO MEDICAL EQUIPMENT PROVIDER PREFERENCE * List name and contact numbers for known caregivers / representatives who currently or will assist patient after discharge: BUNNY SHAH, SON, * Verbal permission to speak to the caregivers and representatives has been obtained from the patient. N/A * Community resources currently utilized Other * Please name any agencies selected above. [facility] * Additional services required to return to the preadmission environment? No * Can the patient safely return to the preadmission environment? Yes * Has this patient been hospitalized within the prior 30 days at any hospital? No Coverage Notice Reviewer: [email or web address] - Kieran Hunt Notice Issued Date-Time: 08/29/2019 15:35 Notice Type: Patient Choice Letter Notice Delivered To: Family Member Relationship to Patient: Son Cardiac Monitor Technician Name: BUNNY SHAH Delivery Method: HAND - Hand Delivered Kierra Days: Prior Verbal Notification: Recipient Understood Notice: Yes Recipient Signature: Yes Med Rec Note Co-signed by Attending: Coverage Notice Comment: NO PREFERENCE HOME HEALTH [facility] - WALKER Last DP export: 08/29/19 3:18 Patient Name: ADRIANO MORRISON Page [phone] at [phone] All edits/amendments must be made on the electronic document DICTATION DATE: 08/29/191625 CARBONIZER TESTER: SHAUNNA 08/29/191625 RPT#: [id number] [place] DATE: STATUS: ADM IN [facility] [address] [place] [address] END OF REPORT
--- NOTE | 2019-08-29 17:36 | NUR ---
PATIENT HAS BEEN DISCHARGED. ALL DISCHARGE TEACHING HAS BEEN DONE AND PAPERS SIGNED. IV REMOVED FROM RIGHT AC WITH CATHETER INTACT. ALL PATIENT BELONGINGS HAVE GONE HOME WITH THE PATIENT. TELEMETRY REMOVED AND RETURNED.
== END 2019-08-29 17:37 | disposition home health service (06) | DRG 194 ==
LOC: D.ER 11:07 → D.M2 13:28
PROVIDERS: Family Medicine; ADMIT Emergency Medicine; ATTEND Emergency Medicine
DX: J18.9 Pneumonia, unspecified organism (principal); E87.1 Hypo-osmolality and hyponatremia; N17.9 Acute kidney failure, unspecified; E86.0 Dehydration; G30.9 Alzheimer's disease, unspecified; F02.80 Dementia in other diseases classified elsewhere, unspecified severity, without behavioral disturbance, psychotic disturbance, mood disturbance, and anxiety; I10 Essential (primary) hypertension; E03.9 Hypothyroidism, unspecified; R13.12 Dysphagia, oropharyngeal phase; R40.2243 Coma scale, best verbal response, confused conversation, at hospital admission; R40.2363 Coma scale, best motor response, obeys commands, at hospital admission; R40.2143 Coma scale, eyes open, spontaneous, at hospital admission